=== PATIENT | male | born 1950 | race Caucasian/White ===

== ENCOUNTER 2016-12-21 15:38 | Emergency (ER) | payer MEDICARE, OTHER ==
[2016-12-21 16:08] LABS: BASOPHILS 0.4 % (0.0-2.0); EOSINOPHILS 1.7 % (0-7); IMMATURE GRANULOCYTES 2.7 % (0-5); LYMPHOCYTES 25.9 % (15-50); MCH 32.5 pg (26.0-34.0); MCHC 33.3 g/dL (31.0-37.0); MCV 97.6 fL (80.0-100.0); MEAN PLATELET VOLUME 9.4 fL (7.4-10.4); MONOCYTES 9.8 % (2-11); NEUTROPHILS 59.5 % (40-80); PLATELET COUNT 364 10x3/uL (130-400); RBC 4.61 10x6/uL (4.20-6.10); RDW 14.1 % (11.5-14.5); WBC 9.7 10x3/uL (4.8-10.8)
[2016-12-21 16:12] LABS: APTT 27.2 SECONDS (22.8-39.4); INR 0.96 (0.85-1.17); PROTIME 12.7 SECONDS (11.6-15.0)
[2016-12-21 16:22] LABS: ALBUMIN 3.7 g/dL (3.4-5.0); ALKALINE PHOSPHATASE 120 U/L (46-116); ALT (SGPT) 19 U/L (10-68); BILIRUBIN - TOTAL 0.55 mg/dL (0.2-1.3); CALC OSMOLALITY 284 mosm/kg (275-300); CALCIUM 8.9 mg/dL (8.5-10.1); CARBON DIOXIDE 28.8 mmol/L (21.0-32.0); CHLORIDE - SERUM 103 mmol/L (98-107); CREATININE - SERUM 0.9 mg/dL (0.6-1.3); GLUCOSE 118 mg/dL (74-106); POTASSIUM - SERUM 3.5 mmol/L (3.5-5.1); PROTEIN - SERUM 6.3 g/dL (6.4-8.2); SODIUM 142 mmol/L (136-145); UREA NITROGEN 14 mg/dL (7-18); eGFR NON AFRICAN AMERICAN 90 mL/min (90-120)
== END 2016-12-21 18:10 | disposition home or self-care (01) ==
LOC: D.ER 15:38
PROVIDERS: Emergency Medicine
DX: G45.9 Transient cerebral ischemic attack, unspecified (principal); R47.81 Slurred speech; J44.9 Chronic obstructive pulmonary disease, unspecified

== ENCOUNTER → 2017-01-28 10:34 | Outpatient (CLI) | payer MEDICARE, OTHER | END | disposition home or self-care (01) | LOC: D.CT 10:00 | DX: G45.9 Transient cerebral ischemic attack, unspecified (principal) ==

== ENCOUNTER → 2017-03-25 13:00 | Outpatient (CLI) | payer MEDICARE, OTHER | END | disposition home or self-care (01) | LOC: D.RT 13:00 | DX: J44.9 Chronic obstructive pulmonary disease, unspecified (principal) ==

== ENCOUNTER → 2018-05-12 13:16 | Outpatient (CLI) | payer MEDICARE, OTHER ==
[~2018-05-12 13:16] MED LIST: BAYER CHEWABLE81 MG PO; BROVANA15 MCG/2 M INH; PLAVIX75 MG PO; PROLASTIN; PULMICORT0.5 MG/21 INH; SINGULAIR10 MG PO
[2018-06-28 18:42] VITALS: BMI 24.3
== END | disposition home or self-care (01) ==
LOC: D.LAB 04-25 09:00 → D.RT 04-25 09:00 → D.RAD 04-25 09:00 → D.RT 04-25 09:45 → D.RAD 04-25 10:00 → D.LAB 04-25 10:30 → D.RT 13:16
DX: J44.9 Chronic obstructive pulmonary disease, unspecified (principal)

== ENCOUNTER 2018-06-28 13:28 | Outpatient (CLI) | payer MEDICARE, OTHER ==
[~2018-06-28] VITALS: Ht 180.3 cm; Wt 79.1 kg
[2018-06-28] VITALS (13 sets, daily range): BP systolic 105–127; BP diastolic 55–98; Ht 180.3 cm; Wt 79.1 kg
--- NOTE | ~2018-06-28 | HEMODYNAMI ---
PATIENT:VICKI HALL MEDICAL RECORD: [id number] : 50 LOCATION:[facility] ADMISSION DATE: 06/28/18 Generatedon:06/28/201817:52 Patient name: VICKI HALL Patient #: [id number] SSN: : 1950 Date of study: 06/28/2018 Page: Of Hemodynamic Procedure Report Patient Data Patient Demographics Procedure consent was obtained First Name: VICKI Gender: Male Last Name: ISABEL : 1950 [facility] Initial: SD Age: 68 year(s) Patient #: [id number] Race: Unknown Additional ID: [id number] Contact details Address: [facility] [address] State: [place] City: [place] Zip code: [address] Past Medical History Allergies Allergen Reaction Date Comments Reported Other allergy 06/28/2018 Morphine, Codeine Admission Admission Data Admission Date: 06/28/2018 Admission Time: 13:28 Height (in.): 70.87 BSA: 1.99 (m2) Height (cm.): 180 BMI: 24.38 (kg/m2) Weight (lbs.): 174.17 Weight (kg.): 79 Lab Results Lab Result Date: 06/28/2018 Lab Result Time: 0:00 Biochemistry Name Units Result Min Max BUN mg/dl 15 --(--*-)-- 7 18 Creatinine mg/dl 0.9 --(-*--)-- 0.6 1.3 CBC Name Units Result Min Max Hemoglobin g/dl 15.2 --(-*--)-- 13.5 17.5 Procedure Procedure Types Cath Procedure Diagnostic Procedure C [facility] w/Coronaries Sedation Charges Moderate Sedation up to 15 minutes PCI Procedure Coronary Stent Coronary Stent Initial Procedure Description Procedure Date Procedure Date: 06/28/2018 Procedure Start Time: 17:29 Procedure End Time: 17:49 Procedure Staff Name Function Luis Fernando Saenz MD Performing Physician Joana Peres RT Monitor Caron Hemphill RN Nurse Rene Molina RT Scrub Procedure Data Cath Procedure Fluoroscopy Diagnostic fluoroscopy Total fluoroscopy Time: 2.9 time: 2.9 min min Diagnostic fluoroscopy Total fluoroscopy dose: 532 dose: 532 mGy mGy Contrast Material Contrast Material Type Amount (ml) Isovue 300 111 Entry Location Entry Primary Successful Side Size Upsize Upsize Entry Closure Kauffman ccessful Closure Location (Fr) 1 (Fr) 2 (Fr) Remarks Device Remarks Radial Right 6 Fr Mechanical artery Short Compression Femoral 7 Fr 7 Fr Exoseal artery Short Short Estimated blood loss: 10 ml Diagnostic catheters Device Type Used For End Catheter Placement DIAGNOSTIC [place] 110cm 5 Procedure Fr catheter ([id number]) Procedure Complications No complications Procedure Medications Medication Administration Route Dosage Oxygen etCO2 Nasal cannula 2 l/min Lidocaine 2% added to field 20 Heparin Flush Bag added to field 2 bags (1000units/500ml NS) 0.9% NaCl I.V. 100 ml/hr Versed I.V. 1 mg Fentanyl I.V. 50 mcg Radial Cocktail I.A. 1 syringe (Verapomil 2mg/Nitro 400mcg/Heparin 1500units) Versed I.V. 1 mg Fentanyl I.V. 50 mcg Heparin Bolus I.V. 4000 units Plavix P.O. 75 mg Hemodynamics Rest BSA: 1.99 (m2) HGB: 15.2 (g/dl) O2 Consumption: Estimated: 216.91 (ml/min) O2 Co nsumption indexed: Estimated:109 (ml/min/m) Heart Rate: 51 (bpm) Snapshots Pre Cath Intra NCS Post Cath Vital Signs Time Heart Resp SPO2 etCO2 NIBP (mmHg) Rhythm Pain Sedation Rate (ipm) (%) (mmHg) Status Level (bpm) 17:24:19 52 11 21 Measuring NSR 0 (11) 10(A) , No pain 17:24:33 58 17 99 13.5 151/92(133) NSR 0 (11) 10(A) , No pain 17:29:14 56 12 98 10.5 146/86(105) NSR 0 (11) 9(A) , No pain 17:33:48 69 14 98 23.2 124/76(103) NSR 0 (11) 9(A) , No pain 17:38:25 63 9 99 21.7 124/77(92) NSR 0 (11) 9(A) , No pain 17:42:59 72 9 95 16.5 140/84(109) NSR 0 (11) 9(A) , No pain 17:47:34 66 10 98 27 123/83(109) NSR 0 (11) 10(A) , No pain Medications Time Medication Route Dose Verified Delivered Reason Not es Effectiveness by by 17:24:12 Oxygen etCO2 2 l/min Luis Fernando Reardon used for Nasal Letty Hemphill RN procedure cannula 17:24:19 Lidocaine 2% added 20ml Luis Fernando Gould for local to vial Letty Saenz MD anesthetic field 17:24:25 Heparin Flush added 2 bags Luis Fernando Gould used for Bag to Letty Saenz MD procedure (1000units/500ml field NS) 17:24:32 0.9% NaCl I.V. 100 Luis Fernandomaribel Reardon Per physician ml/hr Letty Hemphill RN 17:27:23 Versed I.V. 1 mg Luis Fernando Reardon for sedation Letty Hemphill RN 17:27:29 Fentanyl I.V. 50 mcg Luis Fernando Reardon for sedation Letty Hemphill RN 17:31:53 Radial Cocktail I.A. 1 Luis Fernando Gould for (Verapomil syringe Letty Saenz MD vasodilation 2mg/Nitro 400mcg/Heparin 1500units) 17:38:02 Versed I.V. 1 mg Luis Fernando Yuie for sedation Letty Hemphill RN 17:38:06 Fentanyl I.V. 50 mcg Luis Fernando Reardon for sedation Letty Hemphill RN 17:38:59 Heparin Bolus I.V. 4000 Luis Fernando Reardon for miguel ified units Letty Hemphill RN anticoagulation with dr saenz 17:50:29 Plavix P.O. 75 mg Luis Fernando Reardon for Letty Hemphill RN antiplatelet therapy Procedure Log Time Note 16:45:17 Rene Molina RT(R) sent for patient. Start room use. 16:45:18 Time tracking: Regular hours (M-F 7:00 - 5:00) 16:45:24 Plan of Care:Hemodynamics will remain stable., Cardiac rhythm will remain stable., Comfort level will be maintained., Respiratory function will remain adequate., Patient/ family verbilizes understanding of procedure., Procedure tolerated without complication., Recovers from procedure without complications.. 17:06:41 Patient received from ED to CCL 1 Alert and oriented. Tansferred to table in Supine position. 17:06:44 Warm blankets applied, and alie hugger turned on for patient comfort. 17:06:52 H&P Date Dictated: 06/28/2018 Emergent; H&P N/A. 17:06:54 Pre-procedure instructions explained to patient. 17:06:57 Family in waiting room. 17:06:59 Patient NPO since Midnight. 17:07:21 Patient allergic to Other allergyMorphine, Codeine 17:07:38 Patient Height : 70.87 inches 17:07:43 Patient Weight : 174.17 lbs 17:08:14 Lab Result : BUN 15 mg/dl 17:08:14 Lab Result : Hemoglobin 15.2 g/dl 17:08:14 Lab Result : Creatinine 0.9 mg/dl 17:14:41 Correct patient and procedure confirmed by team. 17:14:43 Signed procedure consent form obtained from patient. 17:14:44 ECG and BP/O2 sat monitors applied to patient. 17:23:11 Vital chart was started 17:23:17 Baseline sample Acquired. 17:23:26 Rhythm: sinus rhythm 17:23:29 Full Disclosure recording started 17:23:33 Is the patient allergic to Iodine/contrast media? No. 17:23:35 Was the patient premedicated? Yes 17:23:42 Is patient on blood thinner?Yes 17:23:46 ACC The patient was administered the following blood thiners within the last 24 hours: ACCPlavix 17:23:53 Patient diabetic? No. 17:24:00 Snore? Yes 17:24:02 Sleep apnea? No 17:24:08 Airway obstruction? Yes COPD 17:24:12 Oxygen 2 l/min etCO2 Nasal cannula was administered by Caron Hemphill RN; used for procedure; 17:24:16 Dentures? Yes in tight 17:24:19 Lidocaine 2% 20ml vial added to field was administered by Luis Fernando Saenz MD; for local anesthetic; 17:24:25 Heparin Flush Bag (1000units/500ml NS) 2 bags added to field was administered by Luis Fernando Saenz MD; used for procedure; 17:24:32 0.9% NaCl 100 ml/hr I.V. was administered by Caron Hemphill RN; Per physician; 17:24:52 Patient pain scale 0/10 ?. 17:25:08 IV patent on arrival in left forearm with 0.9% NaCl at [facility]. 17:25:26 Lab results completed and on chart. 17:25:35 Right Radial & Right Groin area was prepped with chlora-prep and draped in sterile fashion 17:25:38 Alarms reviewed by R. N. 17:25:39 Sharps counted by scrub and verified by R.N. 17:25:40 Physician paged 17:26:05 Physician arrived 17::08 --------ALL STOP TIME OUT------ 17:26:10 Final Timeout: patient, procedure, and site verified with staff and physician. All members of the team are in agreement. 17:26:18 Right Radial & Right Groin site verified by team. 17:26:24 Physical assessment completed. ASA score P 2 - A patient with mild systemic disease as per Luis Fernando Saenz MD. 17:26:30 Sedation plan: IV Moderate Sedation Medication:Versed, Fentanyl 17:26:57 Use device set Radial Dx or PCI 17:27:12 Procedure started. 17:27:23 Versed 1 mg I.V. was administered by Caron Hemphill RN; for sedation; 17:27:26 ACIST Syringe (98313) opened to sterile field. 17:27:26 Medline Cath Pack ([id number]) opened to sterile field. 17:27:27 Bag Decanter () opened to sterile field. 17:27:28 DIAGNOSTIC WIRE .035 260cm J wire (417242) opened to sterile field. 17:27:28 ACIST Hand Control (83307) opened to sterile field. 17:27:29 Fentanyl 50 mcg I.V. was administered by Caron Hemphill RN; for sedation; 17:27:29 ACIST Manifold (26667) opened to sterile field. 17:27:30 Tegaderm 4 x 4 (1626W) opened to sterile field. 17:27:36 NEEDLE Cook 21G 4cm Radial ([id number]) opened to sterile field. 17:27:41 SHEATH 6Fr Prelude Radial ([id number]) opened to sterile field. 17:27:47 MBrace Wrist Support ([id number]) opened to sterile field. 17:29:40 Local anesthetic to right radial artery with Lidocaine 2% by Luis Fernando Saenz MD.INITIAL ACCESS ONLY 17:30:45 A 6 Fr Short sheath was inserted into the Right Radial artery 17:31:04 A DIAGNOSTIC [place] 110cm 5 Fr catheter (069561) was advanced over the wire and used for Procedure. 17:31:49 LV angiography performed. 17:31:53 Radial Cocktail (Verapomil 2mg/Nitro 400mcg/Heparin 1500units) 1 syringe I.A. was administered by Luis Fernando Saenz MD; for vasodilation; 17:33:47 LCA angiography performed. 17:34:45 RCA angiography performed. 17:35:15 Catheter removed. 17:37:20 SHEATH 7FR [place] (NKL664) opened to sterile field. 17:37:20 INFLATOR Merit BasixCompak (PZ5570) opened to sterile field. 17:37:21 GUIDE 7FR AR 2.0 catheter ([id number]) opened to sterile field. 17:37:22 CHOICE PT Extra Support 182cm wire ([id number]) opened to sterile field. 17:37:27 Proceeding to intervention. 17:37:36 Local anesthetic to right femoral artery with Lidocaine 2% by Luis Fernando Saenz MD.ADDITIONAL ACCESS 17:38:02 Versed 1 mg I.V. was administered by Caron Hemphill RN; for sedation; 17:38:06 Fentanyl 50 mcg I.V. was administered by Caron Hemphill RN; for sedation; 17:38:12 A 7 Fr Short sheath was inserted into the Femoral artery 17:38:12 Sheath upsized to a 7 Fr Short. 17:38:21 7 Fr AR2 guide catheter was inserted over the wire 17:38:36 choice pt ex wire advanced. 17:38:59 Heparin Bolus 4000 units I.V. was administered by Caron Hemphill RN; for anticoagulation; verified with dr saenz 17:39:28 Wire advanced across lesion. 17:42:30 Place stent Inflation Number: 1 A GEORGINA RX 5.0 x 26 stent ([id number]) was prepped and advanced across the Dist RCA. The stent was deployed at 11 JENARO for 0:07 (min:sec). 17:45:25 TR BAND Standard ([id number]) opened to sterile field. 17:45:32 Wire removed. 17:45:33 Guide catheter removed. 17:45:51 Sheath removed intact; hemostasis achieved with Exoseal to the Femoral artery. 17:46:06 Sheath removed intact; hemostasis achieved with Mechanical Compression to the Right Radial artery. 17:46:11 Procedure ended.(Physican Out) 17:46:25 Fluoroscopy time 02.90 minutes. 17:46:30 Fluoroscopy dose: 532 mGy 17:46:30 Flurop Dose total: 532 17:46:51 Contrast amount:Isovue 300 111ml. 17:47:20 Sharps counted by scrub and verified by R.N. 17:47:25 TR band inflated with 12cc of air. 17:47:28 Insertion/operative site no bleeding no hematoma. 17:47:32 Post-op/insertion site Right Femoral artery dressed using a 4 x 4 and Tegaderm. 17:47:34 Post Procedure Pulses reassessed and unchanged 17:47:38 Post-procedure physical assessment completed. ASA score P 2 - A patient with mild systemic disease as per Luis Fernando Saenz MD. 17:47:42 Post procedure rhythm: unchanged. 17:47:45 Estimated blood loss: 10 ml 17:47:48 Post procedure instruction explained to patient.Patient verbalizes understanding. 17:48:13 Procedure type changed to Cath procedure, Diagnostic procedure, LHC, LHC w/Coronaries, Sedation Charges, Moderate Sedation up to 15 minutes, PCI procedure, Coronary Stent, Coronary Stent Initial 17:48:15 Procedure and supply charges have been captured, reviewed, submitted and are correct. 17:48:49 Procedure Complication : No complications 17:48:52 Vital chart was stopped 17:48:52 See physician's report for complete and final results. 17:48:56 Report given to CVICU. 17:49:15 Patient transfered to CVICU with Stretcher. 17:49:18 Procedure ended. 17:49:18 Full Disclosure recording stopped 17:49:30 ACC-PCI Only Patient was given prescriptions, or instructed by Luis Fernando Saenz MD to start/continue the following medications upon discharge: Plavix 17:49:44 End room use (Document Last) 17:50:29 Plavix 75 mg P.O. was administered by Caron Hemphill RN; for antiplatelet therapy; 17:51:11 Quick Combo opened to sterile field. Intervention Summary Intervention Notes Time ActionType Lesion and Equipment Used Action# Pressure Duration Attributes 17:42:30 Place stent Dist RCA GEORGINA RX 5.0 x 1 11 00:07 26 stent ([id number]) Device Usage Item Name Manufacture Quantity Catalog Number Hospital Part Current Minimal Lot# / Charge Number Stock Stock Serial# Code ACIST Syringe Acist 1 14440 708672 918333 463091 20 (04117) Medical Systems Inc Medline Cath Cardinal 1 [id number] 693538 12605 224060 5 Pack Health ([id number]) Bag Decanter Microtek 1 2001S 116085 33857 548379 5 (2001S) Medical Inc. DIAGNOSTIC WIRE [place] 1 706467 086674 404378 362318 30 .035 260cm J wire (011904) ACIST Hand Acist 1 67305 853007 033021 326569 5 Control (73678) Medical Systems Inc ACIST Manifold Acist 1 09987 156058 455512 863279 5 (73812) Medical Systems Inc Tegaderm 4 x 4 3M 1 1626W 798409 130701 643986 5 (1626W) NEEDLE Cook 21G Cook Medical 1 [id number] 820157 202867 067286 5 4cm Radial (Y74523) SHEATH 6Fr Merit 1 [id number] 191381 859324 687061 5 Prelude Radial Medical ([id number]) MBrace Wrist Advanced 1 140-0250-00 044545 55770 405295 5 Support Vascular ([id number]) Dynamics DIAGNOSTIC Terumo 1 40-5013 341251 843832 626228 5 [place] 110cm 5 Fr catheter (517865) SHEATH 7FR Terumo 1 XPY685 406957 104052 944176 5 [place] (RQL500) INFLATOR Merit Merit 1 JC8086 709873 911415 826879 15 DataCore SoftwarecoiCare Technology Medical (GO6350) GUIDE 7FR AR Medtronic 1 [id number] 388560 657418 404974 0 2.0 catheter (JK7GI57) CHOICE PT Extra [place] 1 [id number] 923173 196454 314680 5 Support 182cm Scientific wire ([id number]) GEORGINA RX 5.0 x Medtronic 1 [id number] 048778 6926179 866717 5 [id number] 26 stent ([id number]) TR BAND Terumo 1 [id number] 200728 386269 295925 40 Standard ([id number]) Fusebill 1 [id number] 765574 592941 684154 5 Signature Audit [place] Stage Time Signature Unsigned Intra-Procedure 06/28/2018 Joana Peres 5:51:57 PM RT(R) Signatures Monitor : Joana Peres Signature : RT Date : Time : [place] [id number] [facility] [address]
--- NOTE | ~2018-06-28 | EC ---
PATIENT:VICKI HALL DATE OF SERVICE: 06/28/18 SEX: M MEDICAL RECORD: [id number] DATE OF : [birth year] LOCATION:D.OPS AGE OF PATIENT: 68 ADMISSION DATE: 06/28/18 REFERRING PHYSICIAN: INTERPRETING PHYSICIAN: KELSY SAENZ MD ECHOCARDIOGRAM REPORT ECHO CHARGES 4 ECHO COMPLETE Date: 06/28/18 CLINICAL DIAGNOSIS: SOB/CHEST PAIN ECHOCARDIOGRAPHIC MEASUREMENTS (adult normal given) AC root (d.<3.7cm) 4.0 cm LV Septum d (<1.2 cm> 1.7 cm Valve Excursion 1.9 cm LV Septum (systole) 1.9 cm Left Atria (s.<4.0cm> 3.4 cm LVPW d(<1.2cm) 1.3 cm RV (d.<2.3cm) 3.0 cm LVPW (sytole) 1.9 cm LV diastole(<5.6CM) 5.2 cm MV E-F(>70mm/sec) cm LV systole 3.9 cm LVOT Diameter 2.0 cm MV exc.(>10mm) 1.6 cm Est.ejection fraction (50-75%) % DOPPLER: LVIT cm/sec A 82.0 cm/sec E 63.0 cm/sec LA cm/sec RVSP 35 mmHg LVOT 101 cm/sec AOP1/2T m/s Asc. Ao 121 cm/sec RVOT 77 cm/sec RA cm/sec PA 90 cm/sec AV Gradient Peak 5.90 mmHg AV Mean 2.91 mmHg AV Area 2.4 cm MV Gradient Peak 2.99 mmHg MV Mean 1.03 mmHg MV Area cm COMMENTS: Tune Up Mechanic: Maco RODRÍGUEZ Tuberculosis Specialist: 1 Dr. Saenz TAPE# PACS Pericardial Effusion N DATE OF SERVICE: 06/28/2018 PROCEDURE: Echocardiogram. FINDINGS: 1. Left ventricular chamber size is within normal limits. Left ventricular systolic function is preserved at 50%; however, there is dyskinesis of the apex. The remaining wall motion is normal. 2. The left atrium within normal limits at 3.4 cm. Right atrium and right ventricular chamber sizes are mildly dilated. ECHOCARDIOGRAM REPORT [id number] VICKI HALL 3. Valvular structures have normal structure and motion. 4. Doppler interrogation reveals mild aortic insufficiency, mild mitral regurgitation, mild tricuspid regurgitation, no other valvular insufficiency or stenosis and pulmonary systolic pressure is normal at 35 mmHg. 5. No evidence of pericardial effusion or left ventricular thrombus. TRANSINT:[id number] Voice Confirmation ID: [id number] DOCUMENT ID: [id number] KELSY SAENZ MD at 1950 CC: [id number] DICTATION DATE: 06/28/18 1603 BULLET SLUG CASTING MACHINE OPERATOR: 06/28/18 1608 [facility] CLI 06/29/18 [place] [id number] [place] [id number]
--- NOTE | ~2018-06-28 | HEMODYNAMI ---
PATIENT:VICKI HALL MEDICAL RECORD: [id number] : 50 [facility] DATE: 06/28/18 Generatedon:06/29/201811:19 Patient name: VICKI HALL Patient #: [id number] SSN: : 1950 Date of study: 06/29/2018 Page: Of Hemodynamic Procedure Report Patient Data Patient Demographics Procedure consent was obtained First Name: VICKI Gender: Male Last Name: ISABEL : 1950 [facility] Initial: [place] Age: 68 year(s) Patient #: [id number] Race: Unknown Additional ID: [id number] Contact details Address: [facility] [address] State: [place] City: [place] Zip code: [address] Past Medical History Allergies Allergen Reaction Date Comments Reported Other allergy 06/28/2018 Morphine, Codeine Other allergy 06/29/2018 MORPHINE, CODEINE Admission Admission Data Admission Date: 06/28/2018 Admission Time: 13:28 Room #: [facility] Height (in.): 70.87 BSA: 1.99 (m2) Height (cm.): 180 BMI: 24.38 (kg/m2) Weight (lbs.): 174.17 Weight (kg.): 79 Lab Results Lab Result Date: 06/28/2018 Lab Result Time: 0:00 Biochemistry Name Units Result Min Max BUN mg/dl 15 --(--*-)-- 7 18 Creatinine mg/dl 0.9 --(-*--)-- 0.6 1.3 CBC Name Units Result Min Max Hemoglobin g/dl 15.2 --(-*--)-- 13.5 17.5 Procedure Procedure Types Cath Procedure PCI Procedure Coronary Stent Coronary Stent Initial Procedure Description Procedure Date Procedure Date: 06/29/2018 Procedure Start Time: 11:05 Procedure End Time: 11:14 Procedure Staff Name Function Luis Fernando Saenz MD Performing Physician Tiffany Mueller RT Monitor Ever Miranda RN Nurse Diamond Wetzel RT Scrub Kaushal Terrazas RT Director Of Reservations Procedure Data Cath Procedure Fluoroscopy Diagnostic fluoroscopy Total fluoroscopy Time: 1.7 time: 1.7 min min Diagnostic fluoroscopy Total fluoroscopy dose: 78 dose: 78 mGy mGy Contrast Material Contrast Material Type Amount (ml) Isovue 300 49 Entry Location Entry Primary Successful Side Size Upsize Upsize Entry Closure Succes sful Closure Location (Fr) 1 (Fr) 2 (Fr) Remarks Device Remarks Femoral Left 6 Fr Exoseal artery Short Estimated blood loss: 410 ml Procedure Complications No complications Procedure Medications Medication Administration Route Dosage 0.9% NaCl I.V. 100 ml/hr Oxygen etCO2 Nasal cannula 2 l/min Heparin Flush Bag added to field 2 bags (1000units/500ml NS) Lidocaine 2% added to field 20 Versed I.V. 1 mg Fentanyl I.V. 50 mcg Heparin Bolus I.V. 4000 units Hemodynamics Rest BSA: 1.99 (m2) HGB: 15.2 (g/dl) O2 Consumption: Estimated: 216.74 (ml/min) O2 Co nsumption indexed: Estimated:108.91 (ml/min/m) Heart Rate: 51 (bpm) Snapshots Pre Cath Intra NCS Post Cath Vital Signs Time Heart Resp SPO2 etCO2 NIBP (mmHg) Rhythm Pain Sedation Rate (ipm) (%) (mmHg) Status Level (bpm) 10:26:57 51 22 96 23.3 133/86(118) NSR 0 (11) 10(A) , No pain 10:31:33 55 12 100 0 146/88(117) NSR 0 (11) 10(A) , No pain 10:36:12 52 15 100 21.8 134/85(110) NSR 0 (11) 10(A) , No pain 10:40:50 57 26 100 33.9 125/82(98) NSR 0 (11) 10(A) , No pain 10:45:24 52 12 100 31.6 137/85(120) NSR 0 (11) 10(A) , No pain 10:50:42 58 15 100 24.8 143/77(126) NSR 0 (11) 10(A) , No pain 10:55:21 63 19 97 36.1 128/94(115) NSR 0 (11) 10(A) , No pain 10:59:53 52 18 97 27.1 120/77(111) NSR 0 (11) 9(A) , No pain 11:05:02 53 17 100 37.6 121/81(106) NSR 0 (11) 9(A) , No pain 11:09:37 50 18 100 10.5 128/83(110) NSR 0 (11) 9(A) , No pain 11:14:13 57 19 99 16.5 131/78(103) NSR 0 (11) 10(A) , No pain Medications Time Medication Route Dose Verified Delivered Reason Notes Effectiveness by by 10:53:09 0.9% NaCl I.V. 100 Ever Ever Per physician ml/hr Ruth Miranda RN RN 10:53:18 Oxygen etCO2 2 Ever Ever Per physician Nasal l/min Ruth Miranda cannula RN RN 10:53:30 Heparin Flush added 2 Ever Ever used for Bag to bags Ruth Miranda procedure (1000units/500ml RN RN NS) 10:53:41 Lidocaine 2% added 20ml Ever Ever for local to vial Ruth Miranda anesthetic RN RN 10:57:55 Versed I.V. 1 mg Ever Ever for sedation Ruth Miranda RN RN 10:58:04 Fentanyl I.V. 50 Ever Ever for sedation mcg Ruth Miranda RN RN 11:09:48 Heparin Bolus I.V. 4000 Ever Ever for units Ruth Miranda anticoagulation RN machine sole leveler Log Time Note 9:54:14 Patient Height : 70.87 inches 9:54:14 Patient Weight : 174.17 lbs 10:12:19 Kaushal WELDON(R) sent for patient. Start room use. 10:12:19 Time tracking: Regular hours (M-F 7:00 - 5:00) 10:12:24 Plan of Care:Hemodynamics will remain stable., Cardiac rhythm will remain stable., Comfort level will be maintained., Respiratory function will remain adequate., Patient/ family verbilizes understanding of procedure., Procedure tolerated without complication., Recovers from procedure without complications.. 10:14:06 H&P Date Dictated: 06/28/2018 Within 30 days and on chart.. 10:15:16 Patient allergic to Other allergyMORPHINE, CODEINE 10:19:36 Patient received from CVICU to CCL 1 Alert and oriented. Tansferred to table in Supine position. 10::38 Warm blankets applied, and alie hugger turned on for patient comfort. 10::38 Correct patient and procedure confirmed by team. 10::39 Signed procedure consent form obtained from patient. 10::41 ECG and BP/O2 sat monitors applied to patient. 10:26:11 Vital chart was started 10::14 Baseline sample Acquired. 10::18 Rhythm: sinus bradycardia 10::19 Full Disclosure recording started 10:26:20 Pre-procedure instructions explained to patient. 10::21 Pre-op teaching completed and patient verbalized understanding. 10::23 Family in waiting room. 10::24 Patient NPO since Midnight. 10::29 Is the patient allergic to Iodine/contrast media? No. 10:26:43 Is patient on blood thinner?Yes 10::46 ACC The patient was administered the following blood thiners within the last 24 hours: ACCPlavix 10:27:14 Patient diabetic? No. 10:27:22 Previous problem with sedation/anesthesia? No ? 10:27:24 Snore? Yes 10:27:25 Sleep apnea? No 10:27:26 Deviated septum? No 10:27:27 Opens mouth fully? Yes 10:27:28 Sticks out tongue? Yes 10:27:35 Airway obstruction? Yes COPD 10:27:41 Dentures? Yes IN TIGHT 10:27:46 Pre procedure: left dorsailis pedis pulse 2+ Normal; easily identifiable; not easily obliterated 10:28:00 IV patent on arrival in right antecubital with 0.9% NaCl at [facility]. 10:28:05 Lab results completed and on chart. 10:28:09 Left groin area was prepped with chlora-prep and draped in sterile fashion 10:28:10 Alarms reviewed by R. N. 10:28:10 Sharps counted by scrub and verified by R.N. 10:28:16 Use device set CATH PACK 10:28:18 ACIST Syringe (63776) opened to sterile field. 10:28:18 ACIST Hand Control (06824) opened to sterile field. 10:28:19 ACIST Manifold (51752) opened to sterile field. 10:28:19 Medline Cath Pack ([id number]) opened to sterile field. 10:28:20 Bag Decanter (2002S) opened to sterile field. 10:28:20 DIAGNOSTIC WIRE .035 260cm J wire (159766) opened to sterile field. 10:28:27 SHEATH 6FR Ashford (UGL657) opened to sterile field. 10:28:31 CHOICE PT Extra Support 182cm wire ([id number]) opened to sterile field. 10:28:34 INFLATOR Merit BasixCompak (LG3535) opened to sterile field. 10:40:41 Zero performed for pressure channel P1 10:53:09 0.9% NaCl 100 ml/hr I.V. was administered by Ever Miranda RN; Per physician; 10:53:18 Oxygen 2 l/min etCO2 Nasal cannula was administered by Ever Miranda RN; Per physician; 10:53:30 Heparin Flush Bag (1000units/500ml NS) 2 bags added to field was administered by Ever Miranda RN; used for procedure; 10:53:41 Lidocaine 2% 20ml vial added to field was administered by Ever Miranda RN; for local anesthetic; 10:57:14 --------ALL STOP TIME OUT------ 10:57:15 Final Timeout: patient, procedure, and site verified with staff and physician. All members of the team are in agreement. 10:57:17 Left groin site verified by team. 10:57:21 Physical assessment completed. ASA score P 2 - A patient with mild systemic disease as per Luis Fernando Saenz MD. 10:57:24 Sedation plan: IV Moderate Sedation Medication:Versed, Fentanyl 10:57:55 Versed 1 mg I.V. was administered by Ever Miranda RN; for sedation; 10:58:04 Fentanyl 50 mcg I.V. was administered by Ever Miranda RN; for sedation; 11:05:37 Procedure started. 11:05:48 Local anesthetic to left femerol artery with Lidocaine 2% by Luis Fernando Saenz MD.INITIAL ACCESS ONLY 11:06:17 A 6 Fr Short sheath was inserted into the Left Femoral artery 11:06:19 GUIDE 6FR EBU 3.5 catheter ([id number]) opened to sterile field. 11:06:26 6 Fr EBU 3.5 guide catheter was inserted over the wire 11:07:09 UNABLE TO ENGAGE LT. 11:07:38 GUIDE 6FR XBLAD 4.0 catheter ([id number]) opened to sterile field. 11:07:51 6 Fr XBLAD 4 guide catheter was inserted over the wire 11:08:03 CHOICE ES 182 wire advanced. 11:08:28 Wire advanced across lesion. 11:09:41 Place stent Inflation Number: 1 A GEORGINA RX 2.75 x 12 stent ([id number]) was prepped and advanced across the 1st Diag. The stent was deployed at 13 JENARO for 0:10 (min:sec). 11:09:48 Heparin Bolus 4000 units I.V. was administered by Ever Miranda RN; for anticoagulation; 11:10:40 Stent catheter was removed intact over wire. 11:10:40 Wire removed. 11:10:42 Guide catheter removed. 11:10:48 EXOSEAL 6Fr (EX600) opened to sterile field. 11:11:06 Sheath removed intact; hemostasis achieved with Exoseal to the Left Femoral artery. 11:11:14 Procedure ended.(Physican Out) 11:12:57 Fluoroscopy time 01.70 minutes. 11:13:02 Fluoroscopy dose: 78 mGy 11:13:02 Flurop Dose total: 78 11:13:05 Contrast amount:Isovue 300 49ml. 11:13:06 Sharps counted by scrub and verified by R.N. 11:13:10 Post-op/insertion site Left Femoral artery dressed using a 4 x 4 and Tegaderm. 11:13:18 Post left femerol artery:stable, soft, clean and dry 11:13:21 Post-procedure physical assessment completed. ASA score P 2 - A patient with mild systemic disease as per Luis Fernando Saenz MD. 11:13:24 Post procedure rhythm: sinus bradycardia 11:13:25 Estimated blood loss: 410 ml 11:13:27 Post procedure instruction explained to patient.Patient verbalizes understanding. 11:13:27 Patient needs reinforcement of post procedure teaching. 11:14:24 Procedure and supply charges have been captured, reviewed, submitted and are correct. 11::26 Procedure Complication : No complications ::28 Vital chart was stopped 11:14:28 See physician's report for complete and final results. 11:14:31 Report given to Pre/Post Procedure Room. 11:14:34 Patient transfered to Pre/Post Procedure Room with Bed. 11:14:36 Procedure ended. 11:14:36 Full Disclosure recording stopped 11:14:39 End room use (Document Last) Intervention Summary Intervention Notes Time ActionType Lesion and Equipment Used Action# Pressure Duration Attributes 11:09:41 Place stent 1st Diag GEORGINA RX 2.75 x 1 13 00:10 12 stent ([id number]) Device Usage Item Name Manufacture Quantity Catalog Number Hospital Part Current M inimal Lot# / Charge Number Stock Stock Serial# Code ACIST Syringe Acist 1 30426 837554 535829 582847 2 0 (55596) Medical Systems Inc ACIST Hand Acist 1 91163 822536 410730 316716 5 Control Medical (32179) Systems Inc ACIST Manifold Acist 1 35476 912149 169704 127974 5 (08754) Medical Systems Inc Medline Cath Cardinal 1 [id number] 077641 36994 513254 5 Pack [employer] ([id number]) Bag Decanter Microtek 1 2001S 280841 08738 577881 5 (2001S) Medical Inc. DIAGNOSTIC [facility] [place] 1 823290 007580 414179 555326 3 0 WIRE .035 260cm J wire (792564) SHEATH 6FR Terumo 1 KTL351 282717 300026 601853 4 0 Ashford (WSY413) CHOICE PT Canones 1 [id number] 434310 054197 457385 5 Extra Support Scientific 182cm wire ([id number]) INFLATOR Merit Merit 1 QO4069 227211 606109 067937 1 5 SnackFeed Medical (BV4157) GUIDE 6FR EBU Medtronic 1 [id number] 467627 12087 577682 3 3.5 catheter ([id number]) GUIDE 6FR Cardinal 1 [id number] 483915 345116 288557 3 XBLAD 4.0 Health catheter ([id number]) GEORGINA RX 2.75 x Medtronic 1 [id number] 617618 3800661 709611 5 [id number] 12 stent ([id number]) EXOSEAL 6Fr Cardinal 1 EX600 439927 242513 058825 1 0 (EX600) Health Signature Audit [place] Stage Time Signature Unsigned Intra-Procedure 06/29/2018 Tiffany Mueller 11:19:32 AM RT(R) Signatures Monitor : Tiffany Mueller Signature : RT Date : Time : [address] [address]
--- NOTE | ~2018-06-28 | OP ---
PATIENT NAME: VICKI HALL MEDICAL RECORD: [id number] :50 [facility] ADMISSION DATE: SURGEON: KELSY SIMONS MD DATE OF OPERATION: 06/28/2018 PROCEDURES: 1. PTCA stent RCA. 2. Left heart catheterization. 3. Selective coronary angiography. 4. Left ventriculogram. INDICATION: Angina and coronary artery disease. PROCEDURE PERFORMED: After informed consent was obtained an after detailed description of risks, benefits as well as alternative therapies, the patient elected to proceed with angiogram and angioplasty. The right femoral area was prepped and draped in normal sterile fashion. Right femoral artery was cannulated via modified Seldinger technique with placement of 6-Anguillan sheath. All catheters exchanged through this sheath. FINDINGS: The left ventriculogram was performed in standard 30-degree JIMENEZ view, reveals anteroapical hypokinesis. Overall ejection fraction preserved though at 50% to 55%. SELECTIVE CORONARY ANGIOGRAPHY: 1. Left main showed no significant angiographic disease. 2. Left anterior descending is totally occluded in mid vessel. This fills via left to left collaterals that are well developed. There is a diagonal that comes off at the site of total occlusion. This is at least 75% stenosed. 3. The left circumflex is small, nondominant, no significant disease. 4. Right coronary artery is very large, very dominant with 90% stenosis in the mid vessel. PTCA STENT OF THE RCA: The stent used was a 5.0 x 26 mm [place]. Result was 0% residual stenosis. OVERALL IMPRESSION: Successful percutaneous transluminal coronary angioplasty stent of the right coronary artery going from 90% initial stenosis to 0% residual. PLAN: PTCA stent of the LAD diagonal in the near future. TRANSINT:[id number] Voice Confirmation ID: [id number] DOCUMENT ID: [id number] KELSY SIMONS MD at 1950 CC: [id number] DICTATION DATE: 06/28/18 174 QUILLER MACHINE FIXER: 06/28/18 1836 DEP CLI 06/29/18 [address] [address] [place] [address]
--- NOTE | ~2018-06-28 | DS ---
PATIENT:VICKI HALL :[birth year] MEDICAL RECORD: [id number] DISCHARGE SUMMARY ADMISSION DATE: 06/28/18 DISCHARGE DATE: 06/29/18 DISCHARGE DIAGNOSES: 1. Angina. 2. Coronary artery disease. 3. Percutaneous transluminal coronary angioplasty stent right coronary artery and left anterior descending this admission. HOSPITAL COURSE: Mr. Hall presents with anginal symptomatology, found to have 90% stenosis of the RCA, found to have 75% stenosis of the LAD diagonal, underwent successful PTCA stent of both territories. He had a chronic total occlusion in the mid LAD, which could not be crossed, but he has excellent collaterals. He was discharged home with the addition of aspirin and Plavix to his medical regimen. Follow up with [facility] in 1 month. TRANSINT:[id number] Voice Confirmation ID: [id number] DOCUMENT ID: [id number] KELSY SIMONS MD at 1950 CC: [id number] DICTATION DATE: 06/29/18 1116 VETERANS' COORDINATOR: 06/29/18 1128 DEP CLI 06/29/18 [id number] [place] [address]
--- NOTE | ~2018-06-28 | CN ---
PATIENT NAME:VICKI HALL MEDICAL RECORD: [id number] : 50 LOCATION:[facility] ADMIT DATE: ACCOUNT: [id number] CONSULTING PHYSICIAN: KELSY SIMONS MD REFERRING PHYSICIAN: KELSY SIMONS MD DATE OF CONSULTATION: 06/28/2018 CARDIOLOGY CONSULTATION DIAGNOSES: 1. Chest pain. 2. Shortness of breath. 3. Past history of transient ischemic attack. 4. Alpha-1 antitrypsin deficiency. HISTORY OF PRESENT ILLNESS: This is a gentleman who presents with chest pain and shortness of breath since this morning. His chest pain is sharp, it is positional. It is worse if he lies down and better if he sits up, it is constant. It has been constant for hours. His EKG is normal. His chest pain is also worse if he takes a deep breath. PHYSICAL EXAMINATION: GENERAL APPEARANCE: Well-nourished, well-developed, appears stated age. Level of distress, comfortable. PSYCHIATRIC: Mental status, alert, normal affect. Orientation, oriented to time, place and person. EYES: Lids and conjunctiva, noninjected. No discharge, no pallor. ENT: Lips, teeth, gums, normal dentition. Oropharynx, no cyanosis, no pallor. NECK: Carotid arteries, bilateral normal upstroke, no bruits, no thrills. JUGULAR VEINS: No jugular venous pressure or distention. CERVICAL LYMPH NODES: Nontender, nonenlarged. THYROID: Not enlarged. Nontender. No nodules. LUNGS: Respiratory effort, unlabored. CHEST: Normal curvature. No thoracic deformity. No chest wall tenderness. Percussion, resonant. Auscultation, clear. No wheezes, no rales, no rhonchi. CARDIOVASCULAR: Precordial exam, nondisplaced. No heaves or pericardial thrills. Rate and rhythm, regular. Heart sounds, normal S1, normal S2. No S3, no gallop, no rub. Systolic murmur, not heard. Diastolic murmur, not heard. EXTREMITIES: No cyanosis, no edema. Peripheral pulses, full and equal in all extremities, except as noted. No bruits appreciated. ABDOMEN: Soft, nondistended. Normal aorta. No bruit. Nontender. No masses. Liver, nontender, no hepatomegaly. Spleen, nontender, no splenomegaly. MUSCULOSKELETAL: No joint tenderness. No joint swelling. No erythema. NEUROLOGICAL: Normal gait, normal strength, normal tone. SKIN: Warm and dry. OVERALL IMPRESSION: Chest pain, quite atypical from a cardiac standpoint. We will get an echocardiogram, would suggest CT angio as well, get serial enzymes. Further care depends upon the findings of the enzymes as well as continued chest pain. TRANSINT:[id number] Voice Confirmation ID: [id number] DOCUMENT ID: [id number] CONSULT REPORT [id number] VICKI HALL, KELSY VEGA at 1950 CC: [id number] DICTATION DATE: 06/28/18 1343 PUBLIC HEALTH POLICY ANALYST: 06/28/18 1352 DEP CLI 06/29/18 [address] [place] [address]
--- NOTE | ~2018-06-28 | OP ---
PATIENT NAME: VICKI HALL MEDICAL RECORD: [id number] :50 LOCATION:[facility] ADMISSION DATE: SURGEON: KELSY SIMONS MD DATE OF OPERATION: 06/29/2018 DATE OF SERVICE: 06/29/2018 PROCEDURES: 1. PTCA stent of LAD diagonal. 2. Selective coronary angiography. INDICATION: Angina and coronary artery disease. PROCEDURE PERFORMED: After informed consent was obtained and after detailed description of risks, benefits as well as alternative therapies, the patient elected to proceed with angiogram and angioplasty. The left femoral area was prepped and draped in normal sterile fashion. Left femoral artery was cannulated via modified Seldinger technique with placement of 6-Nepali sheath. All catheters exchanged through this sheath. FINDINGS: The left anterior descending has a chronic total occlusion in the mid vessel. This could not be crossed. The attention was turned to the LAD diagonal and it had 75% stenosis, this was addressed with a 2.75 x 12 mm Matias. Result was 0% residual stenosis. OVERALL IMPRESSION: Successful percutaneous transluminal coronary angioplasty stent of the left anterior descending diagonal going from 75% initial stenosis to 0% residual. TRANSINT:[id number] Voice Confirmation ID: [id number] DOCUMENT ID: [id number] KELSY SIMONS MD at 1950 CC: [id number] DICTATION DATE: 06/29/18 1117 ALINING INSPECTOR: 06/29/18 1137 DEP CLI 06/29/18 [id number] [place] [id number]
[2018-06-28] MEDS ORDERED: PLAVIX75 MG PO (13:34)
[2018-06-28] MEDS ORDERED: BROVANA15 MCG/2 M INH (13:34)
[2018-06-28] MEDS ORDERED: PULMICORT0.5 MG/21 INH (13:34)
[2018-06-28] MEDS ORDERED: BAYER CHEWABLE81 MG PO (13:35)
[2018-06-28 13:47] LABS: BASOPHILS 0.4 % (0-2); EOSINOPHILS 3.2 % (0-7); HEMATOCRIT 45.2 % (42.0-54.0); HEMOGLOBIN 15.2 g/dL (13.5-17.5); IMMATURE GRANULOCYTES 0.4 % (0-5); LYMPHOCYTES 17.7 % (15-50); MCH 32.8 pg (26.0-34.0); MCHC 33.6 g/dL (31.0-37.0); MCV 97.6 fL (80.0-100.0); MEAN PLATELET VOLUME 9.4 fL (7.4-10.4); MONOCYTES 9.1 % (2-11); NEUTROPHILS 69.2 % (40-80); PLATELET COUNT 340 10x3/uL (130-400); RBC 4.63 10x6/uL (4.20-6.10); RDW 13.8 % (11.5-14.5); WBC 10.7 10x3/uL (4.8-10.8)
[2018-06-28 14:02] LABS: PROTIME 12.8 SECONDS (11.6-15.0)
[2018-06-28 14:03] LABS: ALBUMIN 3.8 g/dL (3.4-5.0); ALKALINE PHOSPHATASE 103 U/L (46-116); ALT (SGPT) 17 U/L (10-68); APTT 27.8 SECONDS (22.8-39.4); CALC OSMOLALITY 278 mosm/kg (275-300); CALCIUM 8.4 mg/dL (8.5-10.1); CARBON DIOXIDE 29.2 mmol/L (21.0-32.0); CHLORIDE - SERUM 104 mmol/L (98-107); CREATININE - SERUM 0.9 mg/dL (0.6-1.3); GLUCOSE 99 mg/dL (74-106); POTASSIUM - SERUM 3.9 mmol/L (3.5-5.1); PROTEIN - SERUM 6.9 g/dL (6.4-8.2); SODIUM 139 mmol/L (136-145); UREA NITROGEN 15 mg/dL (7-18); eGFR NON AFRICAN AMERICAN 89 mL/min (90-120)
[2018-06-28 14:04] LABS: D-DIMER-QUANTITATIVE 0.28 ug/mLFEU (0.20-0.54)
[2018-06-28 14:14] LABS: CKMB 1.3 U/L (0.0-3.6); CREATINE KINASE 66 UL (21-232); TROPONIN-I < 0.017 ng/mL (0.000-0.060)
[2018-06-28] MEDS ORDERED: SINGULAIR10 MG PO (18:37)
[2018-06-28] MEDS ORDERED: PROLASTIN (18:40)
[2018-06-29] VITALS (9 sets, daily range): BP systolic 111–136; BP diastolic 73–86
== END 2018-06-29 15:00 | disposition home or self-care (01) ==
LOC: D.CVICU 13:28 → D.ER 13:28 → D.OPS 13:28 → EDSTATUS 14:30 → D.CVICU 18:10 → D.CLR 06-29 11:30 → D.OPS 06-29 15:00
PROVIDERS: Family Medicine
DX: I25.119 Atherosclerotic heart disease of native coronary artery with unspecified angina pectoris (principal); I10 Essential (primary) hypertension; I25.82 Chronic total occlusion of coronary artery; Z01.812 Encounter for preprocedural laboratory examination; E88.01 Alpha-1-antitrypsin deficiency

== ENCOUNTER → 2019-10-30 10:13 | Outpatient (CLI) | payer MEDICARE, OTHER ==
[2018-06-28 18:42] VITALS: BMI 24.3
== END | disposition home or self-care (01) ==
LOC: D.RAD 09-11 09:00 → D.RT 09-11 09:00 → D.RAD 09-11 10:00
PROVIDERS: ATTEND Internal Medicine Pulmonary Disease
DX: J44.9 Chronic obstructive pulmonary disease, unspecified (principal)